=== PATIENT | female | born 1970 ===

== ENCOUNTER 2019-11-29 11:09 | Inpatient (IN) ==
--- NOTE | 2019-11-29 11:29 | Emergency Department Note ---
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 She notes that she has had cough, sore throat, chest pain, loose stools and myalgias along with some backaches. Her daughter had similar symptoms mid-October. Patient notes that she took her daughter back to [place] around November 11. About 7 days ago the symptoms started. She was tested at [facility] and came back positive for winters virus. She notes that she has some chest pressure at the lower aspect of her chest which has been constant. She notes her shortness of breath has been getting worse for the past 4 days. No history of smoking or asthma. No history of any heart disease. ROS: See above HPI for pertinent positives & negatives. A total of 10 systems reviewed and were otherwise negative. PAST MEDICAL HISTORY:None PAST SURGICAL HISTORY:None FAMILY HISTORY:See Below SOCIAL HISTORY:None HOME MEDICATIONS:See Below ALLERGIES:See Below VITALS:See Below PHYSICAL EXAMINATION: GENERAL: Sitting up in bed, alert, well appearing, well nourished, no distress, non-toxic EYE EXAM: normal conjunctiva. PERRL and EOM's grossly intact. OROPHARYNX: no exudate, no erythema, lips, buccal mucosa, and tongue normal and mucous membranes are moist NECK: supple, no nuchal rigidity, no adenopathy, non-tender LUNGS: Clear to auscultation. Normal chest wall mechanics HEART: no murmurs, S1 normal and S2 normal ABDOMEN: abdomen soft, non-tender, normo-active bowel sounds, no masses, no rebound or guarding. BACK: Back is symmetrical on inspection and there is no deformity, no midline tenderness, no CVA tenderness. SKIN: no rashes and no bruising UPPER EXTREMITIES: upper extremities are grossly normal. LOWER EXTREMITIES: No pitting edema. NEURO EXAM: Normal sensorium, cranial nerves II-XII grossly intact, normal speech, no gross weakness of arms, no gross weakness of legs. 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 IV was established blood work was obtained. Full PPE was worn throughout entire visit by both myself and nursing staff. Labs show no significant leukocytosis or anemia. INR was unremarkable. BMP along with LFTs bilirubin and troponin was negative. Troponin was negative with symptoms that have been present for greater than 24 hours as her chest pain has been present for the past 3 days. EKG was nondiagnostic. Chest x-ray with a right lower lobe infiltrate. Do favor this consistent with the coronavirus. She is not hypoxic. She was not tachycardic with rest. She ambulated in the room with a pulse ox and never dropped below 94%. Heart rate throughout this time stayed just below 100. Patient was given a bolus of IV fluids. I discussed with our product design manager critical care physician as well as her PCP and infectious disease at [facility] per her request. They all recommended discharged without any additional antibiotics or Plaquenil at this time. Patient's PCP discussed with the [facility] infectious disease doctor who recommended admission and Plaquenil. 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 Dr. Olvera did discuss with infecti ous disease and will admit her for further work-up. Triage Nursing notes reviewed. Prior medical records reviewed Vital Signs: reviewed and remarkable for no significant abnormalities Differential diagnosis: Differential diagnoses includes but is not limited to pneumonia, bronchitis, COPD/Asthma exacerbation, pneumothorax, pulmonary embolism, congestive heart failure, acute coronary syndrome ER treatment provided: See below Diagnostics interpreted by me: ECG: none Cardiac Monitoring: Sinus ryhthm 85 Laboratory studies: As stated above and show below. Imaging studies: See below Consultation(s): D/w Dr. Arroyo puljake/CCM-recommends if not hypoxic new mission criteria. No additional antibiotics. No Plaquenil. D/w Dr. Newman who is PCP D/w Dr. Crisostomo-recommends no additional antibiotics, no Plaquenil and discharge home as she is not hypoxic to self quarantine. Discussed with Dr. Newman who is the PCP who discussed with florentin infectious disease at [facility] who recommended admission and Plaquenil. Discussed with Dr. Olvera who discussed with our infectious disease and will admit the patient. ED COURSE: Procedures: none Critical Care: None Past Med/Surg History Social History Preferred Language: Indian Feels Safe at Home: Yes Smoking Status: Never smoker Allergies Allergies Allergy/AdvReac Type Severity Reaction Status Date / Time No Known Allergies Allergy Unverified 11/29/19 12:32 Home Meds Home Medications Medication Instructions Recorded Confirmed celecoxib 200 mg PO DAILY 11/29/19 11/29/19 Results & Data (ED) Vital Signs Vital Signs - 24 hr 11/29/19 11:15 11/29/19 11:17 11/29/19 11:18 Temperature 37.1 C Temperature Source Oral Pulse Rate 89 87 89 Pulse Rate from SpO2 Sensor 88 Pulse Rhythm Regular Regular Respiratory Rate 18 16 18 Respiratory Effort / Characteristics Non-Labored Spontaneous Respiratory Depth Normal Respiratory Pattern Regular Blood Pressure 122/80 122/80 Blood Pressure Mean 84 94 Pulse Oximetry 99 99 99 Oxygen Delivery Method Room Air Room Air 11/29/19 12:21 11/29/19 12:30 11/29/19 13:00 Temperature Temperature Source Pulse Rate 80 84 103 H Pulse Rate from SpO2 Sensor Pulse Rhythm Respiratory Rate 18 21 25 H Respiratory Effort / Characteristics Respiratory Depth Respiratory Pattern Blood Pressure 112/78 114/78 143/86 H Blood Pressure Mean 85 89 98 Pulse Oximetry Oxygen Delivery Method 11/29/19 15:12 Temperature Temperature Source Pulse Rate 75 Pulse Rate from SpO2 Sensor 75 Pulse Rhythm Respiratory Rate 16 Respiratory Effort / Characteristics Respiratory Depth Respiratory Pattern Blood Pressure 111/75 Blood Pressure Mean 80 Pulse Oximetry 100 Oxygen Delivery Method Room Air Laboratory Data Result diagrams: 11/29/19 11:35 11/29/19 11:35 Lab Results 11/29/19 11/29/19 11/29/19 Range/Units 11:35 11:35 11:35 WBC 5.66 (4.8-10.8) K/uL RBC 4.50 (4.2-5.4) M/uL Hgb 12.6 (12.0-16.0) g/dL Hct 38.3 (37-47) % MCV 85.1 (80-100) fL MCH 28.0 (25-34) pg MCHC 32.9 (32-36) g/dL RDW Std Deviation 44.9 (36.4-46.3) fL RDW Coeff of [place]rose 14.5 (11.5-14.5) % Plt Count 235 (130-400) K/uL MPV 9.0 (7.4-10.4) fL Immature Gran % (Auto) 0.2 % Neut % (Auto) 78.7 % Lymph % (Auto) 13.3 % [place] % (Auto) 7.4 % Eos % (Auto) 0.2 % Baso % (Auto) 0.2 % Immature Gran # (Auto) 0.01 (0.00-0.02) K/uL Neut # (Auto) 4.46 (1.4-6.5) K/uL Lymph # (Auto) 0.75 L (1.2-3.4) K/uL [place] # (Auto) 0.42 (0.11-0.59) K/uL Eos # (Auto) 0.01 (0-0.5) K/uL Baso # (Auto) 0.01 (0-0.2) K/uL PT 10.2 (9.0-12.0) Seconds INR 1.0 (0.9-1.1) APTT 26.6 (21.0-31.0) Seconds PTT Ratio 1.0 Sodium 137 (136-145) mmol/L Potassium 3.7 (3.5-5.1) mmol/L Chloride 106 (98-107) mmol/L Carbon Dioxide 27 (21-32) mmol/L Anion Gap 4.0 (3-11) BUN 8 (7-18) mg/dl Creatinine 0.73 (0.6-1.2) mg/dl Est Cr Clr Drug Dosing 75.2 ml/min Est GFR ( Amer) 112.1 Est GFR (Non-Af Amer) 96.7 BUN/Creatinine Ratio 11.7 (10-20) Glucose 107 H (70-99) mg/dl Calcium 9.5 (8.5-10.1) mg/dl Total Bilirubin 0.3 (0.2-1) mg/dl AST 26 (15-37) U/L ALT 29 (12-78) U/L Alkaline Phosphatase 56 (45-117) U/L Total Creatine Kinase (26-192) U/L Troponin I < 0.015 (0-0.045) ng/ml Total Protein 8.0 (6.4-8.2) gm/dl Albumin 3.4 (3.4-5.0) gm/dl Globulin 4.6 H (2.5-4.0) gm/dl Albumin/Globulin Ratio 0.7 L (0.9-2) 11/29/19 Range/Units 11:35 WBC (4.8-10.8) K/uL RBC (4.2-5.4) M/uL Hgb (12.0-16.0) g/dL Hct (37-47) % MCV (80-100) fL MCH (25-34) pg MCHC (32-36) g/dL RDW Std Deviation (36.4-46.3) fL RDW Coeff of Ambrose (11.5-14.5) % Plt Count (130-400) K/uL MPV (7.4-10.4) fL Immature Gran % (Auto) % Neut % (Auto) % Lymph % (Auto) % [place] % (Auto) % Eos % (Auto) % Baso % (Auto) % Immature Gran # (Auto) (0.00-0.02) K/uL Neut # (Auto) (1.4-6.5) K/uL Lymph # (Auto) (1.2-3.4) K/uL [place] # (Auto) (0.11-0.59) K/uL Eos # (Auto) (0-0.5) K/uL Baso # (Auto) (0-0.2) K/uL PT (9.0-12.0) Seconds INR (0.9-1.1) APTT (21.0-31.0) Seconds PTT Ratio Sodium (136-145) mmol/L Potassium (3.5-5.1) mmol/L Chloride (98-107) mmol/L Carbon Dioxide (21-32) mmol/L Anion Gap (3-11) BUN (7-18) mg/dl Creatinine (0.6-1.2) mg/dl Est Cr Clr Drug Dosing ml/min Est GFR ( Amer) Est GFR (Non-Af Amer) BUN/Creatinine Ratio (10-20) Glucose (70-99) mg/dl Calcium (8.5-10.1) mg/dl Total Bilirubin (0.2-1) mg/dl AST (15-37) U/L ALT (12-78) U/L Alkaline Phosphatase (45-117) U/L Total Creatine Kinase 51 (26-192) U/L Troponin I (0-0.045) ng/ml Total Protein (6.4-8.2) gm/dl Albumin (3.4-5.0) gm/dl Globulin (2.5-4.0) gm/dl Albumin/Globulin Ratio (0.9-2) Administered Medications Discontinued Medications Acetaminophen (Tylenol) Confirm Administered Dose 1,000 mg .ROUTE .STK-MED ONE Stop: 11/29/19 12:48 Last Admin: 11/29/19 13:10 Dose: 1,000 mg Documented by: [id number] Sodium Chloride (Nss 1000ml) 1,000 mls @ 999 mls/hr IV .[id number] GREGORIO Stop: 11/29/19 12:30 Last Infusion: 11/29/19 12:52 Dose: 0 mls/hr Documented by: [id number] Admin: 11/29/19 11:45 Dose: 999 mls/hr Documented by: [id number] Discharge Plan Visit Data Chief Complaint: Shortness of Breath/Dyspnea ED Provider: Elvin Ross Discharge Problem: Coronavirus infection, Pneumonia Discharge Instructions Ivon/Other Patient Handouts: Pneumonia Activity Restrictions/Additional Instructions: Please follow up with your primary care doctor with in the next 24 hours. Any worsening of your symptoms, please return to the ED immediately. This includes any fevers greater than 100.4, worsening pain, chest pain, shortness breath, persistent nausea, vomiting, unable to eat or drink, or any other concerning signs or symptoms from your standpoint. You were found to have a blood pressure greater than 120 systolic over 90 diastolic. Due to the new Medicare guidelines, we are now recommending that you follow up with your primary care doctor in regards to this elevated blood pressure. Suspected or Confirmed COVID-19 Instructions Thank you for visiting the Emergency Department today. Your patience is greatly appreciated. You have been screened by our medical staff who determined that you are safe to go home. We ask you follow these simple instructions to remain as healthy as possible. Please make every effort to protect those around you and to reduce transmission of any infections. Be especially careful when near or around high-risk individuals, which includes the elderly, those with weak immune systems, and anyone with preexisting medical diseases. Smoking may increase your chances of developing more severe disease if you contract Coronavirus. If you do smoke, today is the best day of your life to stop. Stay home except to get medical care. If you develop chest pain, uncontrolled fevers, confusion, difficulty breathing, vomiting, passing out, severe headaches, or worsening of your condition, call the Emergency Department for advice 24 hrs a day at [phone] or return for re-evaluation. People who are mildly to moderately ill with COVID-19 are able to isolate at home during their illness. 1. You should restrict activities outside your home, except for getting medical care. 2. Do not go to work, school, or public areas. 3. Avoid using public transportation, ride-sharing, or taxis. 4. Drink plenty of non-alcoholic fluids. 5. Eat healthy. 6. Continue current medications unless told otherwise by your providers. 7. Use Tylenol (acetaminophen), if not allergic, every six hours for control of aches and fevers. Follow the instructions on the bottle. There are several possible scenarios to your visit: At this point, with community transmission, CONSIDER YOURSELF INFECTIOUS. You should SELF-QUARANTINE FOR 14 DAYS (possibly longer if you continue to have fever). A. You were deemed high risk for COVID-19 and testing was performed. Testing can take several days or more to return. An important point to remember is that testing is not perfect and a NEGATIVE test result is not a guarantee that you are free from infection. Your risk of infection must be taken into account and conveyed to you by your provider. A POSITIVE test will trigger action by the Department of Health to track contacts and locations. You should do the right thing and contact all people you were close with and notify them so we can halt the spread. If you need to seek medical care or come in contact with people, let them know ahead of time by calling or keeping a safe distance in person (greater than 6 feet). B. You were deemed high risk for COVID-19 and testing was not performed. This may result from a lack of testing supplies or your risk was deemed so high that you very likely have contracted the disease and assumed to have contracted the illness. Other factors may be present as well. You should self-quarantine for the 14 days (possibly longer if you continue to have fever) regardless of testing. C. Your risk was very low and you were found to have another cause, Strep throat, RSV, a common cold, or Influenza. These illnesses are extremely common and can mimic the symptoms of COVID-19. In these cases, testing for COVID-19 may be deferred. HOME ISOLATION: ISOLATION IS EXTREMELY IMPORTANT TO STOP THE SPREAD OF THE DISEASE AND PREVENTING OTHERS FROM GETTING SIGNIFICANTLY ILL!!!!! The following information about Home Isolation is from the CDC Website: https://www.cdc.gov/coronavirus/2019-ncov/hcp/lvdqjxoa-qhgxcyx-nfrhix.html PEOPLE: Separate yourself from other people and animals in your home. As much as possible, you should stay in a specific room and away from other people in your home. Also, you should use a separate bathroom, if available. 1. You should wear a face mask when you are around other people (e.g., sharing a room or vehicle) or pets and before you enter a healthcare providers office. If you are not able to wear a face mask (for example, because it causes trouble breathing), then people who live with you should not stay in the same room with you, or they should wear a face mask if they enter your room. 2. Cover your mouth and nose with a tissue when you cough or sneeze. Throw used tissues in a lined trash can. Immediately wash your hands with soap and water for at least 20 seconds or, if soap and water are not available, clean your hands with an alcohol-based hand paper folding machine operator that contains at least 60% alcohol. 3. Clean your hands often. Wash your hands often with soap and water for at least 20 seconds, especially after blowing your nose, coughing, or sneezing; going to the bathroom; and before eating or preparing food. If soap and water are not readily available, use an alcohol-based hand paper folding machine operator with at least 60% alcohol, covering all surfaces of your hands and rubbing them together until they feel dry. Soap and water are the best option if hands are visibly dirty. Avoid touching your eyes, nose, and mouth with unwashed hands. 4. Avoid sharing personal household items. You should not share dishes, d rinking glasses, cups, eating utensils, towels, or bedding with other people or pets in your home. After using these items, they should be washed thoroughly with soap and water. 5. Clean all high-touch surfaces every day. High touch surfaces include counters, tabletops, doorknobs, bathroom fixtures, toilets, phones, keyboards, tablets, and bedside tables. Also, clean any surfaces that may have blood, stool, or body fluids on them. Use a household cleaning spray or wipe, according to the label instructions. Labels contain instructions for safe and effective use of the cleaning product including precautions you should take when applying the product, such as wearing gloves and making sure you have good ventilation during use of the product. ANIMALS: You should restrict contact with pets and other animals while you are sick with COVID-19, just like you would around other people. Although there have not been reports of pets or other animals becoming sick with COVID-19, it is still recommended that people sick with COVID-19 limit contact with animals until more information is known about the virus. When possible, have another member of your household care for your animals while you are sick. If you are sick with COVID-19, avoid contact with your pet, including petting, snuggling, being kissed or licked, and sharing food. If you must care for your pet or be around animals while you are sick, wash your hands before and after you interact with pets and wear a face mask. CALL AHEAD BEFORE VISITING YOUR DOCTOR: Appointments, policies, procedures, and schedules have change significantly since the outbreak of COVID-19. If you have a medical appointment, call the healthcare provider and tell them that you have or may have COVID-19. This will help the healthcare providers office take steps to keep other people from getting infected or exposed. MONITOR YOUR SYMPTOMS: Seek prompt medical attention if your illness is worsening (e.g., difficulty breathing). Before seeking care, call your healthcare provider and tell them that you have, or are being evaluated for, COVID-19. Put on a face mask before you enter the facility. These steps will help the healthcare providers office to keep other people in the office or waiting room from getting infected or exposed. Persons who are placed under active monitoring or facilitated self- monitoring should follow instructions provided by their local health department or occupational health professionals, as appropriate. When working with your local health department check their available hours. If you have a medical emergency and need to call 911, NOTIFY DISPATCH PERSONNEL AND EMS that you have, or are being evaluated for COVID-19!!! If possible, put on a face mask before emergency medical services arrive. Common Symptoms of Coronavirus disease 2019 (COVID-19): The following symptoms may appear 2-14 days after exposure. Fever Dry Cough Shortness of breath (Some patients are also experiencing muscle aches, racing heart beats, nausea, and diarrhea) DISCONTINUING HOME ISOLATION: Patients with confirmed COVID-19 should remain under home isolation precautions until the risk of secondary transmission to others is thought to be low. The decision to discontinue home isolation precautions should be made on a jqqa-me-uknb basis, in consultation with healthcare providers and state and local health departments. This is an ever changing treatment and containment strategy. Remain calm, be flexible, and stay healthy! Want more information on COVID-19? Please visit the following websites. Center for Disease Control and Prevention. https://www.cdc.gov/co ronavirus/2019-ncov/index.html [employer]. ht tps://www.acep.org/es-brohkik-wixoy/infectious-diseases/coronavirus/ Home Isolation COVID-19 Instructions The following information about Home Isolation is from the CDC Website: https://www.cdc.gov/coronavirus/2019-ncov/hcp/yygalqcb-ebiatlv-zvrnaj.html Stay home except to get medical care People who are mildly ill with COVID-19 are able to isolate at home during their illness. You should restrict activities outside your home, except for getting medical care. Do not go to work, school, or public areas. Avoid using public transportation, ride-sharing, or taxis. Separate yourself from other people and animals in your home People: As much as possible, you should stay in a specific room and away from other people in your home. Also, you should use a separate bathroom, if available. Animals: You should restrict contact with pets and other animals while you are sick with COVID-19, just like you would around other people. Although there have not been reports of pets or other animals becoming sick with COVID-19, it is still recommended that people sick with COVID-19 limit contact with animals until more information is known about the virus. When possible, have another member of your household care for your animals while you are sick. If you are sick with COVID-19, avoid contact with your pet, including petting, snuggling, being kissed or licked, and sharing food. If you must care for your pet or be around animals while you are sick, wash your hands before and after you interact with pets and wear a face mask. Call ahead before visiting your doctor If you have a medical appointment, call the healthcare provider and tell them that you have or may have COVID-19. This will help the healthcare providers office take steps to keep other people from getting infected or exposed. Wear a face mask You should wear a face mask when you are around other people (e.g., sharing a room or vehicle) or pets and before you enter a healthcare providers office. If you are not able to wear a face mask (for example, because it causes trouble breathing), then people who live with you should not stay in the same room with you, or they should wear a face mask if they enter your room. Cover your coughs and sneezes Cover your mouth and nose with a tissue when you cough or sneeze. Throw used tissues in a lined trash can. Immediately wash your hands with soap and water for at least 20 seconds or, if soap and water are not available, clean your hands with an alcohol-based hand paper folding machine operator that contains at least 60% alcohol. Clean your hands often Wash your hands often with soap and water for at least 20 seconds, especially after blowing your nose, coughing, or sneezing; going to the bathroom; and before eating or preparing food. If soap and water are not readily available, use an alcohol-based hand paper folding machine operator with at least 60% alcohol, covering all surfaces of your hands and rubbing them together until they feel dry. Soap and water are the best option if hands are visibly dirty. Avoid touching your eyes, nose, and mouth with unwashed hands. Avoid sharing personal household items You should not share dishes, drinking glasses, cups, eating utensils, towels, or bedding with other people or pets in your home. After using these items, they should be washed thoroughly with soap and water. Clean all high-touch surfaces everyday High touch surfaces include counters, tabletops, doorknobs, bathroom fixtures, toilets, phones, keyboards, tablets, and bedside tables. Also, clean any surfaces that may have blood, stool, or body fluids on them. Use a household cleaning spray or wipe, according to the label instructions. Labels contain instructions for safe and effective use of the cleaning product including precautions you should take when applying the product, such as wearing gloves and making sure you have good ventilation during use of the product. Monitor your symptoms Seek prompt medical attention if your illness is worsening (e.g., difficulty breathing).Beforeseeking care, call your healthcare provider and tell them that you have, or are being evaluated for, COVID-19. Put on a face mask before you enter the facility. These steps will help the healthcare providers office to keep other people in the office or waiting room from getting infected or exposed. Ask your healthcare provider to call the local or state health department. Persons who are placed under active monitoring or facilitated self- monitoring should follow instructions provided by their local health department or occupational health professionals, as appropriate. When working with your local health department check their available hours. If you have a medical emergency and need to call 911, notify the dispatch personnel that you have, or are being evaluated for COVID-19. If possible, put on a face mask before emergency medical services arrive. Discontinuing home isolation Patients with confirmed COVID-19 should remain under home isolation precautions until the risk of secondary transmission to others is thought to be low. The decision to discontinue home isolation precautions should be made on a zilz-by-cldt basis, in consultation with healthcare providers and state and local health departments. Coronavirus disease 2019 (COVID-19) is a virus that causes a respiratory illness. It is caused by a coronavirus called 2019 novel coronavirus (2019- nCoV). There are many types of coronavirus. Coronaviruses are a very common cause of bronchitis. They may sometimes cause lung infection(pneumonia). Symptoms can range from mild to severe respiratory illness. These viruses are also foundin some animals. COVID-19 was first found in people in [facility], in late 2019. In 2020, several cases of COVID-19 have been confirmed in the [place] Public health officials are working to find the source. How the virus spreads is not yet fully known. It may be spread through droplets of fluid that a person coughs or sneezes into the air. It may be spread if you touch a surface with virus on it, such as a handle or object, and then touch your mouth. What are the symptoms of COVID-19? Some people have no symptoms or mild symptoms. Symptoms may appear 2 to 14 days after contact with the virus. Symptoms can include: Fever Coughing Trouble breathing What are possible complications from COVID-19? In many cases, this virus can cause infection (pneumonia) in both lungs. In some cases, this can cause . How is COVID-19 diagnosed? Your healthcare provider will ask about your symptoms. He or she will also ask about your recent travel and contact with sick people. Testing for the virus is only done through the [facility]. If [facility] provider thinks you may have COVID- 19, he or she will work with your local health department and the CDC on testing. Follow all instructions from your healthcare provider. COVID-19 is diagnosed by: Nasal and throat swab. A cotton-tipped swab is wiped inside your nose or throat. This is done to check for viruses in your nasal mucus. Sputum culture. A small sample of mucus coughed from your lungs (sputum) is collected if you have a cough. It is checked for the virus. How is COVID-19 treated? There is currently no medicine to treat the virus. Treatment is done to help your body while it fights the virus. This is known as supportive care. Support graham care may include: Pain medicine. These include acetaminophen and ibuprofen. They are used to help ease pain and reduce fever. Bed rest. This helps your body fight the illness. For severe illness, you may need to stay in the hospital. Care during severe illness may include: IV (intravenous) fluids.These are given through a vein to help keep your body hydrated. Oxygen. Supplemental oxygen or ventilation with a breathing machine (ventilator) may be given. This is done to keep enough oxygen in your body. Are you at risk for COVID-19? If youve been to a place where people have been sick with this virus, you are at risk for infection. You are at risk if you: Recently traveled to an affected area Had contact with a sick person who recently traveled to this area Had contact with a person who was diagnosed with COVID-19 How can COVID-19 be prevented? There is no vaccine yet. The best prevention is to not have contact with the virus. The CDC advises that people should not travel to areas where there are COVID-19 outbreaks right now for any reason that is not urgent. To help prevent spreading the infection, wash your hands often, or use an alc ohol-basedhand paper folding machine operator. If you are in an area with COVID-19: Wash your hands often. Or use an alcohol-based hand paper folding machine operator often. Only touch your eyes, nose, or mouth with clean hands. Dont have contact with people who are sick. Follow local instructions about being in public. For example, you may be told to not use public transport for a period of time. Stay away from markets that have live or animals. Wash your hands after touching any animals. Don't touch animals that may be sick. Dont share eating or drinking tools with sick people. Dont kiss someone who is sick. Clean surfaces often with disinfectant. If you were in an area with COVID-19 in the last 14 days: Call your healthcare provider. He or she can talk with local health staff to see what action may be needed. Follow all instructions from your provider. Take your temperature every morning and evening for at least 14 days. This is to check for fever. Keep a record of the readings. Keep watch for symptoms of the virus. Tell your provider right away if you have symptoms. If you were in an area with COVID-19 and have a fever or other symptoms: Dont panic. Keep in mind that other illnesses can cause similar symptoms. Stay away from work, school, and public places. Limit physical contact with family members. Don't kiss anyone or share eating or drinking utensils. Clean surfaces you touch with disinfectant. This is to help prevent the virus from spreading. Call your healthcare provider. Explain that you have been exposed to COVID-19 and have symptoms. Do this before going to any hospital. Wait for instructions. Keep in mind that healthcare staff may wear protective equipment such as masks, gowns, gloves, and eye protection. You may be put in a separate room. This is to prevent the possible virus from spreading. Tell the healthcare staff about recent travel. This includes local travel on public transport. Staff may need to find other people you have been in contact with. Follow all instructions the healthcare staff give you. If you have been diagnosed with COVID-19 Follow all instructions from your healthcare provider. Dont leave your home, except to get medical care. Call your healthcare providers office before going. They can prepare and give you instructions. This will help prevent the virus from spreading. Dont go to work, school, or public areas. Dont use public transport or taxis. Stay away from other people in your home. Have them wear face masks around you. Dont share household items or food. Wear a face mask if you can. This includes at home or in a medical facility. Cover your face with a tissue when you cough or sneeze. Throw the tissue away. Wash your hands. Wash your hands often. Caregivers should: Follow all instructions from healthcare staff. Wear a face mask and protective clothing as advised. Wash hands often. Keep track of the sick persons symptoms. Clean surfaces, fabrics, and laundry thoroughly. Keep other people away from the sick person. When to call your healthcare provider Call your healthcare provider: If youve recently traveled and have symptoms If you have been diagnosed with COVID-19 and your symptoms are worse To learn more To find out more about COVID-19, visit the CDC website at www.cdc.gov/coronavirus/2019-ncov/index.html. [employer]. [address] [place] [address]. All rights reserved. This information is not intended as a substitute for professional medical care. Always follow your healthcare professional's instructions. This information has been adapted from [employer] Forms Stand Alone Forms: My [facility] [employer] Prescriptions Prescriptions: No Action celecoxib 200 mg capsule 200 mg PO DAILY RF: 0 Referrals Referrals: PCP,NO [Primary Care Provider] - Discharge Problem: Pneumonia Qualifiers: Pneumonia type: due to unspecified organism Laterality: right Lung location: unspecified part of lung Qualified Code(s): J18.9 - Pneumonia, unspecified organism
[2019-11-29] MEDS ORDERED: SODIUM CHLORIDE 0.9% 1000ML 1,000 ML IV SCH (11:30)
[2019-11-29 11:58] LABS: Basophils # (auto) 0.01 K/uL (0-0.2); Basophils % (auto) 0.2 %; Eosinophils # (auto) 0.01 K/uL (0-0.5); Eosinophils % (auto) 0.2 %; Hematocrit (blood only) 38.3 % (37-47); Hemoglobin 12.6 g/dL (12.0-16.0); Immature Granulocytes # (auto) 0.01 K/uL (0.00-0.02); Immature Granulocytes % (auto) 0.2 %; Lymphocytes # (auto) 0.75 K/uL (1.2-3.4); Lymphocytes % (auto) 13.3 %; Mean Corpuscular Hgb Conc 32.9 g/dL (32-36); Mean Corpuscular Volume 85.1 fL (80-100); Monocytes # (auto) 0.42 K/uL (0.11-0.59); Monocytes % (auto) 7.4 %; Neutrophils # (auto) 4.46 K/uL (1.4-6.5); Neutrophils % (auto) 78.7 %; Platelet Count 235 K/uL (130-400); RDW Coefficient of Variation 14.5 % (11.5-14.5); RDW Standard Deviation 44.9 fL (36.4-46.3); White Blood Count 5.66 K/uL (4.8-10.8)
[2019-11-29 12:09] LABS: Partial Thromboplastin Time 26.6 Seconds (21.0-31.0); Prothrombin Time 10.2 Seconds (9.0-12.0)
[2019-11-29 12:15] LABS: Alanine Aminotransferase 29 U/L (12-78); Albumin Level 3.4 gm/dl (3.4-5.0); Aspartate Aminotransferase 26 U/L (15-37); BUN Creatinine Ratio 11.7 (10-20); Blood Urea Nitrogen 8 mg/dl (7-18); Calcium 9.5 mg/dl (8.5-10.1); Carbon Dioxide 27 mmol/L (21-32); Chloride 106 mmol/L (98-107); Creatinine Clr Calc Pharmacy 75.2 ml/min; Est GFR (African American) 112.1; Est GFR (Non-African American) 96.7; Glucose 107 mg/dl (70-99); Potassium 3.7 mmol/L (3.5-5.1); Sodium 137 mmol/L (136-145)
[2019-11-29 12:20] LABS: Albumin Globulin Ratio 0.7 (0.9-2); Alkaline Phosphatase 56 U/L (45-117); Bilirubin,Total 0.3 mg/dl (0.2-1); Globulin 4.6 gm/dl (2.5-4.0); Troponin I < 0.015 ng/ml (0-0.045)
--- NOTE | 2019-11-29 12:31 | XRay Report ---
XR chest 1V portable CLINICAL HISTORY: Dyspnea COMPARISON STUDY: No previous studies for comparison. FINDINGS: Lung volumes are normal. There is no pneumothorax or pleural effusion. Cardiac size is norm al. Mediastinal contours are normal. There is no evidence for pulmonary edema. There is mild right lo wer lung airspace opacity. There is possible minimal left basilar opacity. Cholecystectomy clips are noted. IMPRESSION: Mild right lower lung airspace opacity which favors an infectious etiology. ACT 112: Negative or not required by law. Electronically signed by: Price Cooper M.D. 11/29/2019 12:30 PM
[2019-11-29] MEDS ORDERED: ACETAMINOPHEN 500 MG TAB ONE (12:47)
--- NOTE | 2019-11-29 17:37 | History & Physical Report ---
Date of Service November 29, 2019 Assessment & Plan (1) Coronavirus infection: Confirmed SARS-CoV-2 infection with fever, chills, malaise, cough, SOB, headache, myalgias, loose stools. Chest x-ray shows RLL infiltrate (pneumonia). Hemodynamically stable. Oxygenating well on RA. Case discussed with ID. They recommend: hydroxychloroquine 400 mg BID x 1 day, followed by 200 mg BID x 4 days azithromycin 500 mg x 1, then 250 mg daily x 4 days (Patient took a course of azithromycin last week, but ID recommends concomitant therapy with hydroxychloroquine). QTc on admission EKG 423 msec. Monitor QTc on telemetry. Avoid NSAID's and steroids per current guidelines. Diarrhea may be secondary to SARS-CoV-2, but will check stool for C diff. (2) DVT prophylaxis: Low risk for VTE per IMPROVE Risk Assessment Model. VTE prophylaxis. (3) Discharge planning issues: Anticipated discharge to home. Internal Medicine follow-up with Dr. Basilia Newman. 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 She enjoys good health and does not have any significant chronic medial conditions. Her daughter is a student at [email or web address] in [employer]. The university closed in October because of the COVID-19 epidemic. 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 Patient became ill on November 19 with chills and headache. She was tested for SARS-CoV-2 by [facility] on November 20 and the results came back positive. Subsequently developed fever as high as 38.6, cough productive of white sputum, SOB, loose stools, worsening malaise, myalgias. Prescribed azithromycin last week without improvement. Referred to ED due to worsening symptoms. Daughter was initially asymptomatic, but later developed fever and cough. She is being tested for SARS-CoV-2, results pending. Her parents live with her and they have both been diagnosed with SARS-CoV-2 as well. Allergies Allergy/AdvReac Type Severity Reaction Status Date / Time No Known Allergies Allergy Unverified 11/29/19 12:32 Home Medications Home Medications Medication Instructions Recorded Confirmed Type celecoxib 200 mg PO DAILY 11/29/19 11/29/19 History Past Med/Surg History Medical History (Updated 11/29/19 @ 17:43 by Immanuel Olvera MD) Raynaud phenomenon Surgical History (Updated 11/29/19 @ 17:43 by Immanuel Olvera MD) Status post carpal tunnel release Status post cholecystectomy Family History (Updated 11/29/19 @ 17:44 by Immanuel Olvera MD) Mother Asthma Social History Preferred Language: Citizen Of [place] Feels Safe at Home: Yes Smoking Status: Never smoker Review of Systems Constitutional: + fever, + chills, + body aches and + malaise Ear, Nose, Mouth, Throat: + nasal congestion and + epistaxis (mild) Respiratory: as per Subjective / HPI Cardiovascular: no chest pain Gastrointestinal: + diarrhea/loose stools; no nausea, no vomiting, no constipation, no blood in stools and no melena Genitourinary: no dysuria and no hematuria Musculoskeletal: + myalgia; no joint pain Integumentary: no rash Neurologic: + headache(s) Endocrine: no polydipsia and no polyuria Hematologic / Lymphatic: no easy bleeding, no easy bruising and no lymphadenopathy Physical Exam Constitutional: WD/WN, vitals as above + ill appearing; no acute distress Eyes: PERRL, conjunctivae normal, anicteric sclerae Neck: trachea midline, no thyromegaly Respiratory: no respiratory distress Auscultation: + crackles (right base); no wheezes Cardiovascular: Rate/Rhythm: regular rate Heart Sounds: no gallop, no murmur and no cardiac rub Vessels: no JVD Extremities: no calf tenderness and no edema Gastrointestinal (Abdomen): normal bowel sounds, soft, nontender, no hepatosplenomegaly Musculoskeletal: Head/Neck/Chest: neck supple Extremities: strength 5/5 throughout; no cyanosis and no clubbing Skin: no rashes, warm and dry Psychiatric: Orientation: alert and oriented x 3 Affect: euthymic affect Lymphatic: no cervical lymphadenopathy Results & Data Results & Data ([facility]) Vital Signs (Past 12 Hours) Vital Signs Temp Pulse Resp BP Pulse Ox 11/29/19 17:16 77 16 125/69 100 11/29/19 16:00 77 16 125/69 11/29/19 15:30 74 20 110/78 11/29/19 15:12 75 16 111/75 100 11/29/19 13:00 103 H 25 H 143/86 H 11/29/19 12:30 84 21 114/78 11/29/19 12:21 80 18 112/78 11/29/19 11:18 37.1 C 89 18 122/80 99 11/29/19 11:17 87 16 122/80 99 11/29/19 11:15 89 18 99 Laboratory Results Laboratory Results - last 24 hr 11/29/19 11/29/19 11/29/19 11:35 11:35 11:35 WBC 5.66 RBC 4.50 Hgb 12.6 Hct 38.3 MCV 85.1 MCH 28.0 MCHC 32.9 RDW Std Deviation 44.9 RDW Coeff of Ambrose 14.5 Plt Count 235 MPV 9.0 Immature Gran % (Auto) 0.2 Neut % (Auto) 78.7 Lymph % (Auto) 13.3 Bonner % (Auto) 7.4 Eos % (Auto) 0.2 Baso % (Auto) 0.2 Immature Gran # (Auto) 0.01 Neut # (Auto) 4.46 Lymph # (Auto) 0.75 L [place] # (Auto) 0.42 Eos # (Auto) 0.01 Baso # (Auto) 0.01 PT 10.2 INR 1.0 APTT 26.6 PTT Ratio 1.0 Sodium 137 Potassium 3.7 Chloride 106 Carbon Dioxide 27 Anion Gap 4.0 BUN 8 Creatinine 0.73 Est Cr Clr Drug Dosing 75.2 Est GFR ( Amer) 112.1 Est GFR (Non-Af Amer) 96.7 BUN/Creatinine Ratio 11.7 Glucose 107 H Calcium 9.5 Total Bilirubin 0.3 AST 26 ALT 29 Alkaline Phosphatase 56 Total Creatine Kinase Troponin I < 0.015 Total Protein 8.0 Albumin 3.4 Globulin 4.6 H Albumin/Globulin Ratio 0.7 L 11/29/19 11:35 WBC RBC Hgb Hct MCV MCH MCHC RDW Std Deviation RDW Coeff of Ambrose Plt Count MPV Immature Gran % (Auto) Neut % (Auto) Lymph % (Auto) Bonner % (Auto) Eos % (Auto) Baso % (Auto) Immature Gran # (Auto) Neut # (Auto) Lymph # (Auto) Bonner # (Auto) Eos # (Auto) Baso # (Auto) PT INR APTT PTT Ratio Sodium Potassium Chloride Carbon Dioxide Anion Gap BUN Creatinine Est Cr Clr Drug Dosing Est GFR ( Amer) Est GFR (Non-Af Amer) BUN/Creatinine Ratio Glucose Calcium Total Bilirubin AST ALT Alkaline Phosphatase Total Creatine Kinase 51 Troponin I Total Protein Albumin Globulin Albumin/Globulin Ratio Diagnostic Findings PORTABLE CHEST X-RAY FINDINGS: Lung volumes are normal. There is no pneumothorax or pleural effusion. Cardiac size is normal. Mediastinal contours are normal. There is no evidence for pulmonary edema. There is mild right lower lung airspace opacity. There is possible minimal left basilar opacity. Cholecystectomy clips are noted. IMPRESSION: Mild right lower lung airspace opacity which favors an infectious etiology. ACT 112: Negative or not required by law. Electronically signed by: Price Cooper M.D. 11/29/2019 12:30 PM ECG Additional Comments: EKG performed at 1129 reviewed and demonstrated NSR at 87 / min, QRS duration 80 msec, QTc 423 msec. Manual QT II = 360 msec, QTc = 433 msec. Manual QT V5 = 360 msec, QTc = 433 msec. Code Status & VTE Plan VTE Prophylaxis Plan VTE Prophylaxis will be ordered: No
[2019-11-29] MEDS ORDERED: ACETAMINOPHEN 325 MG TAB PO PRN (18:15)
[2019-11-29] MEDS ORDERED: AZITHROMYCIN 250 MG TAB PO ONE (18:30)
[2019-11-29] MEDS: HYDROXYCHLOROQUINE SULFATE 200 MG TAB PO SCH ×2 (20:03→21:49)
[2019-11-30 05:56] LABS: Mean Corpuscular Hemoglobin 27.4 pg (25-34); Mean Corpuscular Hgb Conc 32.4 g/dL (32-36); Mean Corpuscular Volume 84.6 fL (80-100); Mean Platelet Volume 8.8 fL (7.4-10.4); Platelet Count 246 K/uL (130-400); RDW Coefficient of Variation 14.3 % (11.5-14.5); RDW Standard Deviation 44.6 fL (36.4-46.3); Red Blood Count 4.02 M/uL (4.2-5.4); White Blood Count 5.78 K/uL (4.8-10.8)
[2019-11-30 06:23] LABS: BUN Creatinine Ratio 10.8 (10-20); Calcium 8.5 mg/dl (8.5-10.1); Creatinine Clr Calc Pharmacy 91.5 ml/min; Potassium 4.2 mmol/L (3.5-5.1)
[2019-11-30] MEDS: HYDROXYCHLOROQUINE SULFATE 200 MG TAB PO SCH ×2 (08:45→21:40)
[2019-11-30] MEDS: AZITHROMYCIN 250 MG TAB PO SCH (09:58)
--- NOTE | 2019-11-30 13:55 | Hospitalist Progress Note ---
Date of Service November 30, 2019 Assessment & Plan (1) Coronavirus infection: Confirmed SARS-CoV-2 infection with fever, chills, malaise, cough, SOB, headache, myalgias, loose stools. Chest x-ray shows RLL infiltrate (pneumonia). Hemodynamically stable. Oxygenating well on RA. Case discussed with ID. They recommended: hydroxychloroquine 400 mg BID x 2 doses, followed by 200 mg BID x 8 doses azithromycin 500 mg x 1, then 250 mg daily x 4 days (Patient took a course of azithromycin last week, but ID recommends concomitant therapy with hydroxychloroquine). QTc on admission EKG 423 msec. Monitor QTc on telemetry 426 msec this morning. Avoid NSAID's and steroids per current guidelines. Diarrhea may be secondary to SARS-CoV-2, but ordered stool PCR for C diff. (2) DVT prophylaxis: Low risk for VTE per IMPROVE Risk Assessment Model. VTE prophylaxis not indicated. Ambulate. (3) Discharge planning issues: Anticipated discharge to home. Internal Medicine follow-up with Dr. Basilia Newman. Admission and Anticipated Discharge Date Admission Date: November 30, 2019 Subjective Recheck for COVID-19. Patient seen in their room around 1140. Feels a little better. Still tired. Low grade temp last evening. Persistent cough, minimally productive. Persistent loose stools; no nausea or vomiting. Review of Systems: Constitutional- as noted above. Cardiac- no anginal symptoms. Pulmonary- as noted above. GI- as noted above. - no urinary symptoms. Otherwise, as noted above. Physical Exam Constitutional: + ill appearing; no acute distress Eyes: + anicteric sclerae Respiratory: no respiratory distress Auscultation: + crackles (right base) Cardiovascular: Rate/Rhythm: regular rate and regular rhythm Heart Sounds: no gallop, no murmur and no cardiac rub Vessels: no JVD Extremities: no calf tenderness and no edema Gastrointestinal (Abdomen): normal bowel sounds, soft, nontender, no hepatosplenomegaly Skin: no rashes, warm and dry Psychiatric: Orientation: alert and oriented x 3 Results & Data Results & Data ([facility]) Vital Signs (Past 12 Hours) Vital Signs Temp Pulse Pulse Resp BP Pulse Ox 11/30/19 12:03 37.4 C 87 18 118/81 98 11/30/19 08:50 36.6 C 99 H 20 114/76 95 11/30/19 07:39 85 11/30/19 06:05 36.7 C 86 20 109/70 97 Laboratory Results 11/30/19 05:42 11/30/19 05:42
--- NOTE | 2019-11-30 14:56 | Electrocardiogram Report ---
Test Reason : Blood Pressure : / mmHG Vent. Rate : 087 BPM Atrial Rate : 087 BPM P-R Int : 142 ms QRS Dur : 080 ms QT Int : 352 ms P-R-T Axes : 040 043 031 degrees QTc Int : 423 ms Normal sinus rhythm Normal ECG No previous ECGs available Confirmed by Naseem Dang ([id number]) on 11/30/2019 2:55:24 PM Referred By: REFERRED SELF Confirmed By:Naseem Dang
--- NOTE | 2019-11-30 14:59 | Electrocardiogram Report ---
Test Reason : Blood Pressure : / mmHG Vent. Rate : 075 BPM Atrial Rate : 075 BPM P-R Int : 130 ms QRS Dur : 082 ms QT Int : 364 ms P-R-T Axes : 022 043 023 degrees QTc Int : 406 ms Normal sinus rhythm Normal ECG When compared with ECG of 29-NOV-2019 11:29, (unconfirmed) T wave inversion now evident in Anterior leads Confirmed by Naseem Dang ([id number]) on 11/30/2019 2:58:58 PM Referred By: REFERRED SELF Confirmed By:Naseem Dang
[2019-12-01 06:33] LABS: Basophils # (auto) 0.01 K/uL (0-0.2); Basophils % (auto) 0.2 %; Eosinophils % (auto) 1.7 %; Hematocrit (blood only) 34.7 % (37-47); Hemoglobin 11.4 g/dL (12.0-16.0); Immature Granulocytes # (auto) 0.03 K/uL (0.00-0.02); Immature Granulocytes % (auto) 0.5 %; Lymphocytes # (auto) 1.25 K/uL (1.2-3.4); Lymphocytes % (auto) 21.6 %; Mean Corpuscular Hemoglobin 27.8 pg (25-34); Mean Corpuscular Hgb Conc 32.9 g/dL (32-36); Mean Corpuscular Volume 84.6 fL (80-100); Mean Platelet Volume 8.6 fL (7.4-10.4); Monocytes # (auto) 0.62 K/uL (0.11-0.59); Monocytes % (auto) 10.7 %; Neutrophils # (auto) 3.78 K/uL (1.4-6.5); Neutrophils % (auto) 65.3 %; Platelet Count 294 K/uL (130-400); RDW Coefficient of Variation 14.3 % (11.5-14.5); RDW Standard Deviation 44.4 fL (36.4-46.3); White Blood Count 5.79 K/uL (4.8-10.8)
[2019-12-01 07:02] LABS: Alanine Aminotransferase 20 U/L (12-78); Albumin Level 2.9 gm/dl (3.4-5.0); Aspartate Aminotransferase 16 U/L (15-37); BUN Creatinine Ratio 10.5 (10-20); Bilirubin Direct < 0.1 mg/dl (0-0.2); Blood Urea Nitrogen 7 mg/dl (7-18); Calcium 8.8 mg/dl (8.5-10.1); Carbon Dioxide 27 mmol/L (21-32); Chloride 108 mmol/L (98-107); Creatinine Clr Calc Pharmacy 84.5 ml/min; Est GFR (African American) 120.8; Est GFR (Non-African American) 104.3; Glucose 89 mg/dl (70-99); Magnesium 2.4 mg/dl (1.8-2.4); Potassium 3.9 mmol/L (3.5-5.1); Sodium 139 mmol/L (136-145)
[2019-12-01 07:05] LABS: Albumin Globulin Ratio 0.7 (0.9-2); Alkaline Phosphatase 50 U/L (45-117); Bilirubin,Total 0.4 mg/dl (0.2-1); Globulin 4.1 gm/dl (2.5-4.0)
[2019-12-01] MEDS ORDERED: HYDROXYCHLOROQUINE SULFATE 200 MG TAB PO SCH (09:00)
[2019-12-01] MEDS: HYDROXYCHLOROQUINE SULFATE 200 MG TAB PO SCH ×2 (09:26→17:42)
[2019-12-01] MEDS: AZITHROMYCIN 250 MG TAB PO SCH (09:26)
[2019-12-01 11:51] VITALS: BP 108/72; PULSE 91; TEMP 99.1; O2SAT 96
[2019-12-01] MEDS ORDERED: ALBUTEROL HFA 8 GM INHALER INH PRN (14:31)
--- NOTE | 2019-12-01 14:56 | Electrocardiogram Report ---
Test Reason : Blood Pressure : / mmHG Vent. Rate : 084 BPM Atrial Rate : 084 BPM P-R Int : 144 ms QRS Dur : 072 ms QT Int : 362 ms P-R-T Axes : 044 038 035 degrees QTc Int : 427 ms Normal sinus rhythm Normal ECG When compared with ECG of 29-NOV-2019 19:30, (unconfirmed) No significant change was found Confirmed by Naseem Dang ([id number]) on 12/01/2019 2:55:42 PM Referred By: REFERRED SELF Confirmed By:Naseem Dang
--- NOTE | 2019-12-01 15:45 | Hospitalist Progress Note ---
Date of Service December 01, 2019 Assessment & Plan (1) Coronavirus infection: Confirmed SARS-CoV-2 infection with fever, chills, malaise, cough, SOB, headache, myalgias, loose stools. Chest x-ray shows RLL infiltrate (pneumonia). Hemodynamically stable. Oxygenating well on RA. Case discussed with ID. They recommended: hydroxychloroquine 400 mg BID x 2 doses, followed by 200 mg BID x 8 doses azithromycin 500 mg x 1, then 250 mg daily x 4 days (Patient took a course of azithromycin last week, but ID recommends concomitant therapy with hydroxychloroquine). QTc on admission EKG 423 msec. Monitor QTc on telemetry 440 msec this afternoon. Avoid NSAID's and steroids per current guidelines. (2) Diarrhea: Stools negative for C diff. (3) DVT prophylaxis: Low risk for VTE per IMPROVE Risk Assessment Model. VTE prophylaxis not indicated. Ambulate. (4) Discharge planning issues: Anticipated discharge to home. Internal Medicine follow-up with Dr. Basilia Newman. Admission and Anticipated Discharge Date Admission Date: November 30, 2019 Subjective Patient seen in their room around 1510. Feels a little better. Still tired. Low grade temp again last evening. Persistent minimally productive cough. Maintaining O2 sats on RA. Diarrhea improved. Myalgias improved. Would like to be discharged. Review of Systems: Constitutional- as noted above. Cardiac- no anginal symptoms. Pulmonary- as noted above. GI- as noted above. - no urinary symptoms. Otherwise, as noted above. Physical Exam Constitutional: WD/WN, vitals as above Eyes: + anicteric sclerae Respiratory: no respiratory distress Auscultation: no wheezes few c rackles right base Cardiovascular: Rate/Rhythm: regular rate and regular rhythm Heart Sounds: no gallop, no murmur and no cardiac rub Vessels: no JVD Extremities: no calf tenderness and no edema Gastrointestinal (Abdomen): normal bowel sounds, soft, nontender, no hepatosplenomegaly Musculoskeletal: Head/Neck/Chest: neck supple Psychiatric: Orientation: alert and oriented x 3 Results & Data Results & Data ([facility]) Vital Signs (Past 12 Hours) Vital Signs Temp Pulse Pulse Resp BP Pulse Ox 12/01/19 15:09 91 H 12/01/19 11:50 37.3 C 91 H 20 108/72 96 12/01/19 10:40 90 12/01/19 08:39 36.9 C 95 H 18 111/73 94 12/01/19 07:00 78 Laboratory Results Laboratory Results - last 24 hr 12/01/19 12/01/19 06:04 06:04 WBC 5.79 RBC 4.10 L Hgb 11.4 L Hct 34.7 L MCV 84.6 MCH 27.8 MCHC 32.9 RDW Std Deviation 44.4 RDW Coeff of Ambrose 14.3 Plt Count 294 MPV 8.6 Immature Gran % (Auto) 0.5 Neut % (Auto) 65.3 Lymph % (Auto) 21.6 [place] % (Auto) 10.7 Eos % (Auto) 1.7 Baso % (Auto) 0.2 Immature Gran # (Auto) 0.03 H Neut # (Auto) 3.78 Lymph # (Auto) 1.25 [place] # (Auto) 0.62 H Eos # (Auto) 0.10 Baso # (Auto) 0.01 Sodium 139 Potassium 3.9 Chloride 108 H Carbon Dioxide 27 Anion Gap 4.0 BUN 7 Creatinine 0.65 Est Cr Clr Drug Dosing 84.5 Est GFR ( Amer) 120.8 Est GFR (Non-Af Amer) 104.3 BUN/Creatinine Ratio 10.5 Glucose 89 Calcium 8.8 Magnesium 2.4 Total Bilirubin 0.4 Direct Bilirubin < 0.1 AST 16 ALT 20 Alkaline Phosphatase 50 Total Protein 7.0 Albumin 2.9 L Globulin 4.1 H Albumin/Globulin Ratio 0.7 L
--- NOTE | 2019-12-01 17:45 | Discharge Summary ---
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 She enjoys good health and does not have any significant chronic medial conditions. Her daughter is a student at [employer] in [employer] [facility] [employer] [facility] [employer]. The university closed in October because of the COVID-19 epidemic. 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 Patient became ill on November 19 with chills and headache. She was tested for SARS-CoV-2 by [facility] on November 20 and the results came back positive. Subsequently developed fever as high as 38.6, cough productive of white sputum, SOB, loose stools, worsening malaise, myalgias. Prescribed azithromycin last week without improvement. Referred to ED due to worsening symptoms. Daughter was initially asymptomatic, but later developed fever and cough. She is being tested for SARS-CoV-2, results pending. Her parents live with her and they have both been diagnosed with SARS-CoV-2 as well. Principal Diagnosis COVID-19 Discharge Data Allergies Allergy/AdvReac Type Severity Reaction Status Date / Time No Known Allergies Allergy Unverified 11/29/19 12:32 Hospital Course (1) Coronavirus infection: Confirmed SARS-CoV-2 infection with fever, chills, malaise, cough, SOB, headache, myalgias, loose stools. Chest x-ray shows RLL infiltrate (pneumonia). Hemodynamically stable / oxygenating well on RA. Case discussed with ID. They recommended: hydroxychloroquine 400 mg BID x 2 doses, followed by 200 mg BID x 8 doses azithromycin 500 mg x 1, then 250 mg daily x 4 days (Patient took a course of azithromycin last week, but ID recommends concomitant therapy with hydroxychloroquine). QTc on admission EKG 423 msec. Monitor QTc on telemetry 440 msec this afternoon. Avoid NSAID's and steroids per current guidelines. Symptoms improving by day of discharge- persistent cough, but temp down and myalgias improved. Remained hemodynamically stable and O2 sats in mid 90's on RA. Discharged to home with Rx to complete course of hydroxychloroquine + azithromycin. Given info on COVID-19 precautions. (2) Diarrhea: Stools negative for C diff. (3) DVT prophylaxis: Low risk for VTE per IMPROVE Risk Assessment Model. VTE prophylaxis not indicated. Ambulate. (4) Discharge planning issues: Discharge to home. Internal Medicine follow-up with Dr. Basilia Newman. Total Time Total Time Spent Total Time Spent (In Minutes): 25 Discharge Plan Discharge Items Patient Disposition: Home - Self-Care Reason For Visit: COVID-19 Discharge Diagnosis: COVID-19 Activity: As commented below Activity Comment: Gradually increase activity as tolerated. Non-emergency contact: Primary Care Provider and Hospitalist Call non-emergency contact if: you have any medication questions, your symptoms worsen and your temperature is above 101 Follow-up/Referrals: Basilia Newman MD [Physician] - (Office will contact you for follow-up.) PCP,NO [Primary Care Provider] - Diet: Vegetarian (Lacto-Ovo) Addtl Attending Provider Instructions: MEDICATION CHANGES: hydroxychloroquine (Plaquenil) 200 mg twice a day for 5 more doses. azithromycin (Zithromax) 250 mg daily for 2 more doses Prescriptions for hydroxychloroquine and azithromycin sent to [facility]. Please call [phone] for payment and curbside pickup by healthy family member or friend. albuterol HFA (Ventolin) 2 puffs every 6 hours as needed for wheezing You may use inhaler from hospital. acetaminophen as needed for pain as directed Avoid ibuprofen and other nonsteroidal anti-inflammatory drugs. RECOMMENDATIONS FOR FOLLOW-UP: As directed by Dr. Newman and [facility]. COVID-19 INSTRUCTIONS: The following information about Home Isolation is from the CDC Website: https://www.cdc.gov/coronavirus/2019-ncov/hcp/idqscdys-fdtdixy-xpqmqy.html Stay home except to get medical care People who are mildly ill with COVID-19 are able to isolate at home during their illness. You should restrict activities outside your home, except for getting medical care. Do not go to work, school, or public areas. Avoid using public transportation, ride-sharing, or taxis. Separate yourself from other people and animals in your home People: As much as possible, you should stay in a specific room and away from other people in your home. Also, you should use a separate bathroom, if available. Animals: You should restrict contact with pets and other animals while you are sick with COVID-19, just like you would around other people. Although there have not been reports of pets or other animals becoming sick with COVID-19, it is still recommended that people sick with COVID-19 limit contact with animals until more information is known about the virus. When possible, have another member of your household care for your animals while you are sick. If you are sick with COVID-19, avoid contact with your pet, including petting, snuggling, being kissed or licked, and sharing food. If you must care for your pet or be around animals while you are sick, wash your hands before and after you interact with pets and wear a face mask. Call ahead before visiting your doctor If you have a medical appointment, call the healthcare provider and tell them that you have or may have COVID-19. This will help the healthcare providers office take steps to keep other people from getting infected or exposed. Wear a face mask You should wear a face mask when you are around other people (e.g., sharing a room or vehicle) or pets and before you enter a healthcare providers office. If you are not able to wear a face mask (for example, because it causes trouble breathing), then people who live with you should not stay in the same room with you, or they should wear a face mask if they enter your room. Cover your coughs and sneezes Cover your mouth and nose with a tissue when you cough or sneeze. Throw used tis sues in a lined trash can. Immediately wash your hands with soap and water for at least 20 seconds or, if soap and water are not available, clean your hands with an alcohol-based hand explosive man that contains at least 60% alcohol. Clean your hands often Wash your hands often with soap and water for at least 20 seconds, especially after blowing your nose, coughing, or sneezing; going to the bathroom; and before eating or preparing food. If soap and water are not readily available, use an alcohol-based hand explosive man with at least 60% alcohol, covering all surfaces of your hands and rubbing them together until they feel dry. Soap and water are the best option if hands are visibly dirty. Avoid touching your eyes, nose, and mouth with unwashed hands. Avoid sharing personal household items You should not share dishes, drinking glasses, cups, eating utensils, towels, or bedding with other people or pets in your home. After using these items, they should be washed thoroughly with soap and water. Clean all high-touch surfaces everyday High touch surfaces include counters, tabletops, doorknobs, bathroom fixtures, toilets, phones, keyboards, tablets, and bedside tables. Also, clean any surfaces that may have blood, stool, or body fluids on them. Use a household cleaning spray or wipe, according to the label instructions. Labels contain instructions for safe and effective use of the cleaning product including precautions you should take when applying the product, such as wearing gloves and making sure you have good ventilation during use of the product. Monitor your symptoms Seek prompt medical attention if your illness is worsening (e.g., difficulty breathing).Beforeseeking care, call your healthcare provider and tell them that you have, or are being evaluated for, COVID-19. Put on a face mask before you enter the facility. These steps will help the healthcare providers office to keep other people in the office or waiting room from getting infected or exposed. Ask your healthcare provider to call the local or state health department. Persons who are placed under active monitoring or facilitated self- monitoring should follow instructions provided by their local health department or occupational health professionals, as appropriate. When working with your local health department check their available hours. If you have a medical emergency and need to call 911, notify the dispatch personnel that you have, or are being evaluated for COVID-19. If possible, put on a face mask before emergency medical services arrive. Discontinuing home isolation Patients with confirmed COVID-19 should remain under home isolation precautions until the risk of secondary transmission to others is thought to be low. The decision to discontinue home isolation precautions should be made on a duwh-ox-eqqs basis, in consultation with healthcare providers and state and local health departments. OTHER INSTRUCTIONS: Incentive spirometry every 2-4 hours while awake. Seek medical attention if you have: * temperature above 101 * chest pain or trouble breathing * abdominal pain, nausea, vomiting * diarrhea, dark stools or bloody stools * any unanswered questions or concerns Call 911 if symptoms are severe. Please take good care of yourself. Call if you have any questions or problems. You can reach a [facility] hospitalist on duty at [facility] 24 hours a day by calling [phone]. My cell # is [phone]. Pending Studies at Discharge: No Stand-Alone Forms: My [facility], Smoking Cessation Medications and DC Order Prescriptions: New albuterol sulfate [Ventolin HFA] 90 mcg/actuation Hfa Aerosol Inhaler 2 puff inhalation Q6H PRN (Reason: wheezing) Qty: 8.5 RF: 0 hydroxychloroquine 200 mg tablet 200 mg PO BID Qty: 5 RF: 0 azithromycin 250 mg tablet 250 mg PO DAILY Qty: 2 RF: 0 Discontinued celecoxib 200 mg capsule 200 mg PO DAILY RF: 0 Discharge Orders: Discharge Order (Routine); Ordered 12/01/19 Ordered By: Immanuel Olvera Admission Data Admit Date/Time: 11/30/19 08:55 Attending Provider: Immanuel Olvera Admit Provider: Immanuel Olvera Primary Care Provider: PCP,NO Other Interventions: Discharge Summary Assessment (RN) Last Done: 12/01/19 16:16
== END 2019-12-01 18:48 | disposition home or self-care (01) | DRG 177 ==
LOC: ED 11:09 → 2W 11:09